=== PATIENT | female | born 1970 | race Caucasian/White ===

== ENCOUNTER 2020-07-01 07:20 | Emergency (ER) | payer SELFPAY ==
[~2020-07-01] VITALS: Ht 165.1 cm; Wt 61.2 kg
--- OUTSIDE RECORDS SUMMARY | 2020-07-01 07:55 | XMS REPORT | Continuity of Care Document ---
Author Author [facility] t Organization [facility] Address [address] [place] [address] Phone Unavailable Care Team Providers Care Clearance Representative Name Role Phone Unavailable Unavailable Payers Payer Name Policy Type Policy Number Effective Date Expiration Date S ource Problems This patient has no known problems. Allergies, Adverse Reactions, Alerts Allergy Name Allergy Type Status Severity Reaction(s) Onset Date Inacti ve Date Treating Clinician Comments Source Penicillins DA Active SV 2016-10-18 00:00:00 [facility] codeine DA Active U 2016-10-18 00:00:00 [facility] soy FA Active SV 2016-10-18 00:00:00 [facility] Medications This patient has no known medications. Procedures This patient has no known procedures. Results Test Description Test Time Test Comments Results Result Comments Source - CT ABD PELVIS W/CONT 2019-12-17 12:28:00 Nam e: LUCIO ESCOBEDO [facility] : 1970 Age/S: 49 / F [address] [facility] Unit #: [id number] Loc: [place] [address] Phys: Blaise Castellon MD Acct: [id number] Dis Date: Status: REG ER PHONE #: [phone] Exam Date: 12/17/2019 1129 FAX #: [phone] Reason: ap diffuse EXAMS: CPT CODE: [id number] CT ABD PELVIS W/CONT 50586 HISTORY: Diffuse abdominal pain. COMPARISON: None available. Location: [facility]. CT of abdomen and pelvis with IV contrast: 100 mL of Isovue-370. Automated exposure control. CT of abdomen: The lung bases are clear. The liver is enhancing homogeneously no parenchymal mass. Patient is post cholecystectomy. Portal vein and hepatic artery are patent. Liver measured 15.3 cm in length. Trace perihepatic fluid. The spleen is not enlarged. The stomach is incompletely and is limited in evaluation. Thickened distal esophagus. Pancreas is enhancing homogeneously. Right adrenal is normal. Left adrenal nodule measured 1 cm with average Hounsfield unit measurement ranging up to 60. This is difficult to characterize. Kidneys are free from hydroureteronephrosis. Homogeneous enhancement. Bilateral excretion is noted. No pathologic adenopathy. Well-opacified abdominal and pelvic vasculature. Atherosclerotic change. Mild diffuse di stention of the large bowel with thickening of the transverse colon and the left colon consistent with acute colitis. The small bowel loops in the upper abdomen are within normal limits. CT PELVIS: Severe thickening of the entire ileum suggesting severe acute enteritis. Appendix is not visible. Thickened left colon consistent with colitis. Small pelvic free fluid. No free air or abscess. Incompletely distended urinary bladder is unremarkable. Patient is post hysterectomy. No pelvic pathologic adenopathy. Subcutaneous tissues and the musculature are normal in appearance. No lytic or blastic lesions are noted within the bony skeleton. DJD. Pars PAGE 1 Signed Report (CONTINUED) Name: LUCIO ESCOBEDO [facility] : 1970 Age/S: 49 / F [address] [facility] Unit #: [id number] Loc: [place] [address] Phys: Blaise Castellon MD Acct: [id number] Dis Date: Status: REG ER PHONE #: [phone] Exam Date: 12/17/2019 1128 FAX #: [phone] Reason: ap diffuse EXAMS: CPT CODE: [id number] CT ABD PELVIS W/CONT 10937 <Continued> interarticularis fracture at L5-S1 level bilaterally. Grade 2 anterolisthesis of L5 over S1. IMPRESSION: Severe diffuse circumferential wall thickening of the entire ileum consistent with severe acute enteritis. Left and transverse colitis as well. Small free fluid. No free air or abscess. Appendix is not visible. at 1228 Reported and signed by: Keith Gonzalez M.D. CC: Blaise Castellon MD Technologist:Fabi Montiel RT(R)(CT) CTDI: 9.12 DLP: 910.79 Trnscb Date/Time: 12/17/2019 (1228) [email or web address] Orig Print D/T: S: 12/17/2019 (5744) PAGE 2 Signed Report COMPREHENSIVE METABOLIC PANEL 2019-12-17 10:52:00 Test Item SODIUM (test code = NA) 138 mmol/L 136-145 N POTASSIUM (test code = K) 3.7 mmol/L 3.5-5.1 N CHLORIDE (test code = CL) 102 mmol/L 101-109 N CARBON DIOXIDE (test code = CO2) 27.3 mmol/L 21-32 N ANION GAP (test code = GAP) 12 mmol/L 10-20 N GLUCOSE (test code = GLU) 113 mg/dL 74-106 H BLOOD UREA NITROGEN (test code = BUN) 7 mg/dL 3-21 N CREATININE (test code = CREAT) 0.57 mg/dL 0.55-1.3 N BUN/CREATININE RATIO (test code = BUN/CREA) 12.3 10-20 N TOTAL PROTEIN (test code = PROT) 6.9 g/dL 6.5-8.4 N ALBUMIN (test code = ALB) 3.7 g/dL 3.4-4.8 N GLOBULIN (test code = GLOB) 3.2 G/DL 1-10 N ALBUMIN/GLOBULIN RATIO (test code = A/G) 1.16 RATIO 0.75-1.50 N CALCIUM (test code = CA) 8.9 mg/dL 8.4-10.2 N BILIRUBIN TOTAL (test code = BILT) 0.50 mg/dL 0.0-1.0 N SGOT/AST (test code = AST) 17 U/L 6-32 N SGPT/ALT (test code = ALT) 19 U/L 12-78 N N ote: Change in REFERENCE RANGE due to new reagent method. ALKALINE PHOSPHATASE TOTAL (test code = ALKP) 49 U/L 38-126 N [id number] 10:52:00* Test Item Value Reference Range Interpretation Comments LIPASE (test code = LIP) 83 U/L 128-270 L [id number] 10:52:00* Test Item Value Reference Range Interpretation Comments MAGNESIUM (test code = MAG) 1.8 mg/dL 1.6-2.3 N COMPREHENSIVE METABOLIC [id number] 10:45:00* Test Item Value Reference Range Interpretation Comments SODIUM (test code = NA) 138 mmol/L 136-145 N POTASSIUM (test code = K) 3.7 mmol/L 3.5-5.1 N CHLORIDE (test code = CL) 102 mmol/L 101-109 N CARBON DIOXIDE (test code = CO2) 27.3 mmol/L 21-32 N ANION GAP (test code = GAP) 12 mmol/L 10-20 N GLUCOSE (test code = GLU) 113 mg/dL 74-106 H BLOOD UREA NITROGEN (test code = BUN) 7 mg/dL 3-21 N CREATININE (test code = CREAT) 0.57 mg/dL 0.55-1.3 N BUN/CREATININE RATIO (test code = BUN/CREA) 12.3 10-20 N TOTAL PROTEIN (test code = PROT) gram/dL 6.4-8.2 ALBUMIN (test code = ALB) g/dL 3.4-5.0 GLOBULIN (test code = GLOB) g/dL 2.7-4.2 ALBUMIN/GLOBULIN RATIO (test code = A/G) 0.75-1.50 CALCIUM (test code = CA) 8.9 mg/dL 8.4-10.2 N BILIRUBIN TOTAL (test code = BILT) mg/dL 0.2-1.2 SGOT/AST (test code = AST) IUnit/L 15-37 SGPT/ALT (test code = ALT) U/L 10-69 ALKALINE PHOSPHATASE TOTAL (test code = ALKP) IUnit/L 45-117 [id number] 10:45:00* Test Item Value Reference Range Interpretation Comments LIPASE (test code = LIP) Unit/L 144-286 [id number] 10:45:00* Test Item Value Reference Range Interpretation Comments MAGNESIUM (test code = MAG) mg/dL 1.8-2.4 CBC W/AUTO [id number] 10:40:00* Test Item Value Reference Range Interpretation Comments WHITE BLOOD CELL (test code = WBC) 9.4 K/mm3 4.5-12.5 N RED BLOOD CELL (test code = RBC) 5.07 mill/mm3 3.7-5.2 N HEMOGLOBIN (test code = HGB) 15.5 gram/dL 11.5-15.5 N HEMATOCRIT (test code = HCT) 45.5 % 36.0-46.0 N MEAN CELL VOLUME (test code = MCV) 89.7 fL 80-98 N MEAN CELL HGB (test code = MCH) 30.6 picogram 27.0-33.0 N MEAN CELL HGB CONCETRATION (test code = MCHC) 34.1 gram/dL 33.0-36. 0 N RED CELL DISTRIBUTION WIDTH (test code = RDW) 12.6 % 11.6-16. 2 N RED CELL DISTRIBUTION WIDTH SD (test code = RDW-SD) 42.5 fL 37 .0-51.0 N PLATELET COUNT (test code = PLT) 246 K/mm3 150-450 N MEAN PLATELET VOLUME (test code = MPV) 10.1 fL 6.7-11.0 N NEUTROPHIL % (test code = NT%) 70.4 % 39.0-69.0 H LYMPHOCYTE % (test code = LY%) 22.1 % 25.0-55.0 L MONOCYTE % (test code = MO%) 5.9 % 0.0-10.0 N EOSINOPHIL % (test code = EO%) 1.0 % 0.0-5.0 N BASOPHIL % (test code = BA%) 0.5 % 0.0-1.0 N NEUTROPHIL # (test code = NT#) 6.63 K/mm3 1.8-7.7 N LYMPHOCYTE # (test code = LY#) 2.08 K/mm3 1.0-5.0 N MONOCYTE # (test code = MO#) 0.56 K/mm3 0-0.8 N EOSINOPHIL # (test code = EO#) 0.09 K/mm3 0.0-0.5 N BASOPHIL # (test code = BA#) 0.05 K/mm3 0.0-0.2 N MANUAL DIFF REQUIRED (test code = MDIFF) NO URINALYSIS [id number] 10:34:00* Test Item Value Reference Range Interpretation Comments UA COLOR (test code = COLU) YELLOW YELLOW UA APPEARANCE (test code = APPU) CLEAR CLEAR UA GLUCOSE DIPSTICK (test code = DGLUU) norm mg/dL NEGATIVE UA BILIRUBIN DIPSTICK (test code = BILU) NEGATIVE mg/dL NEGATIVE UA KETONE DIPSTICK (test code = KETU) neg mg/dL NEGATIVE UA SPECIFIC GRAVITY (test code = SGU) 1.005 1.001-1.035 UA BLOOD DIPSTICK (test code = JANETT) 25 (1+) Johan/uL NEGATIVE A UA PH DIPSTICK (test code = VON) 5.0 5.0-8.0 UA PROTEIN DIPSTICK (test code = PROU) neg mg/dL Neg-15 UA UROBILINIOGEN DIPSTICK (test code = URO) norm mg/dL 0.0-0.2 UA NITRITE DIPSTICK (test code = HERBERTH) NEGATIVE NEGATIVE UA LEUKOCYTE ESTERASE DIPSTICK (test code = LEUU) neg uL NEGA TIVE UA WBC (test code = WBCU) 0-1 per HPF 0-5 UA RBC (test code = RBCU) 0-3 per HPF 0-5 UA EPITHELIAL CELLS (test code = EPIU) Rare (0-1/hpf) per HPF Few UA BACTERIA (test code = BACU) TRACE per HPF NONE Urine Source? Clean CatchUR HCG [id number] 10:34:00* Test Item Value Reference Range Interpretation Comments UR HCG QUAL (test code = HCGQLU) NEGATIVE This HCGQL test is NOT applicable for MALE patients.Check with nurse about probable order error.If Tumor Marker Test needed, nurse should order test "HCGTU"(Test #[id number]) Urine Source? Clean Catch- CTA [id number] 12:15:00 Name: LUCIO ESCOBEDO [facility] : 1970 Age/S: 49 / F [address] [facility] Unit #: [id number] Loc: [place] [address] Phys: Justus Sullivan MD Acct: [id number] Dis Date: Status: REG ER PHONE #: [phone] Exam Date: 11/11/2019 1135 FAX #: [phone] Reason: chest pain r/o dissection EXAMS: CPT CODE: [id number] CTA CHEST 60476 REASON FOR EXAM: chest pain r/o dissection EXAM ORDER DATE: 11/11/2019 10:57 AM Ordering MLizzie: Justus Sullivan MD PROCEDURE: - CTA CHEST Comparison:None Axial CT images of the chest were obtained with IV contrast. Reconstructed sagittal and coronal images of the chest were provided for interpretation. Dose reduction techniques were applied. FINDINGS: Visualized neck: Normal Airways, Lungs and Pleura: There are a few groundglass nodules in the right upper lobe which may represent a focal infection. Heart, great vessels, pulmonary vessels, mediastinum: Mild atherosclerotic disea se is present in the aortic arch and in the descending thoracic aorta at t he level of the aortic hiatus. However no dissection or aneurysm of the ao rta is seen. No appreciable coronary atherosclerosis or an anomalous anato my is appreciated. No pulmonary embolus or right heart strain. Cardiac vicky mbers are within normal limits. Lymph nodes: No axillary, in ternal mammary, hilar, or mediastinal adenopathy. Musculoske letal/chest wall: Mild degenerative changes are present in the thoracic sp ine. Visualized upper abdomen: Subcentimeter adrenal adenomas are present bilaterally. Prior cholecystectomy IMPRESS ION: No findings of aortic dissection or pulmonary embolus or significant coronary or aortic atherosclerosis. Mild groundglass opacities in the right upper lobe may represent an PAGE 1 Signed Report (CONTINUED) Name: LUCIO ESCOBEDO [facility] : 1970 Age/S: 49 / F [address] [facility] Unit #: [id number] Loc: [place] [address] Phys: Justus Sullivan MD Acct: [id number] Dis Date: Status: REG ER PHONE #: [phone] Exam Date: 1135 FAX #: [phone] Reason: chest pain r /o dissection EXAMS: CPT CODE: [id number] CTA CHEST 37118 <Continued> infectious process. Location: [facility] at 1215 Reported and signed by: Rajeev Finney MD CC: Justus Sullivan MD Technologist:Janey Ryan CTDI: DLP: Trnscb Date/Time: 11/11/2019 (8611) [id number] Orig Print D/T: S: 11/11/2019 (0642) PAGE 2 Signed Report COMPREHENSIVE METABOLIC [id number] 11:19:00* Test Item Value Reference Range Interpretation Comments SODIUM (test code = NA) 144 mmol/L 136-145 N POTASSIUM (test code = K) 3.8 mmol/L 3.5-5.1 N CHLORIDE (test code = CL) 107 mmol/L 101-109 N CARBON DIOXIDE (test code = CO2) 27.7 mmol/L 21-32 N ANION GAP (test code = GAP) 13 mmol/L 10-20 N GLUCOSE (test code = GLU) 112 mg/dL 74-106 H BLOOD UREA NITROGEN (test code = BUN) 7 mg/dL 3-21 N CREATININE (test code = CREAT) 0.54 mg/dL 0.55-1.3 L BUN/CREATININE RATIO (test code = BUN/CREA) 13.0 10-20 N TOTAL PROTEIN (test code = PROT) 6.8 g/dL 6.5-8.4 N ALBUMIN (test code = ALB) 3.6 g/dL 3.4-4.8 N GLOBULIN (test code = GLOB) 3.2 G/DL 1-10 N ALBUMIN/GLOBULIN RATIO (test code = A/G) 1.13 RATIO 0.75-1.50 N CALCIUM (test code = CA) 8.9 mg/dL 8.4-10.2 N BILIRUBIN TOTAL (test code = BILT) 0.40 mg/dL 0.0-1.0 N SGOT/AST (test code = AST) 14 U/L 6-32 N SGPT/ALT (test code = ALT) 22 U/L 12-78 N N ote: Change in REFERENCE RANGE due to new reagent method. ALKALINE PHOSPHATASE TOTAL (test code = ALKP) 54 U/L 38-126 N [id number] 11:19:00* Test Item Value Reference Range Interpretation Comments TROPONIN-I (test code = TROPI) <0.015 ng/mL 0.00-0.056 N B-TYPE NATRIURETIC [id number] 11:18:00* Test Item Value Reference Range Interpretation Comments B-TYPE NATRIURETIC PEPTIDE (test code = BNP) 9.0 pg/mL 0-100 N COMPREHENSIVE METABOLIC [id number] 11:11:00* Test Item Value Reference Range Interpretation Comments SODIUM (test code = NA) 144 mmol/L 136-145 N POTASSIUM (test code = K) 3.8 mmol/L 3.5-5.1 N CHLORIDE (test code = CL) 107 mmol/L 101-109 N CARBON DIOXIDE (test code = CO2) 27.7 mmol/L 21-32 N ANION GAP (test code = GAP) 13 mmol/L 10-20 N GLUCOSE (test code = GLU) 112 mg/dL 74-106 H BLOOD UREA NITROGEN (test code = BUN) 7 mg/dL 3-21 N CREATININE (test code = CREAT) 0.54 mg/dL 0.55-1.3 L BUN/CREATININE RATIO (test code = BUN/CREA) 13.0 10-20 N TOTAL PROTEIN (test code = PROT) gram/dL 6.4-8.2 ALBUMIN (test code = ALB) g/dL 3.4-5.0 GLOBULIN (test code = GLOB) g/dL 2.7-4.2 ALBUMIN/GLOBULIN RATIO (test code = A/G) 0.75-1.50 CALCIUM (test code = CA) 8.9 mg/dL 8.4-10.2 N BILIRUBIN TOTAL (test code = BILT) mg/dL 0.2-1.2 SGOT/AST (test code = AST) IUnit/L 15-37 SGPT/ALT (test code = ALT) U/L 10-69 ALKALINE PHOSPHATASE TOTAL (test code = ALKP) IUnit/L 45-117 [id number] 11:11:00* Test Item Value Reference Range Interpretation Comments TROPONIN-I (test code = TROPI) ng/mL 0-0.045 CBC W/AUTO [id number] 11:03:00* Test Item Value Reference Range Interpretation Comments WHITE BLOOD CELL (test code = WBC) 6.0 K/mm3 4.5-12.5 N RED BLOOD CELL (test code = RBC) 4.65 mill/mm3 3.7-5.2 N HEMOGLOBIN (test code = HGB) 14.1 gram/dL 11.5-15.5 N HEMATOCRIT (test code = HCT) 42.5 % 36.0-46.0 N MEAN CELL VOLUME (test code = MCV) 91.4 fL 80-98 N MEAN CELL HGB (test code = MCH) 30.3 picogram 27.0-33.0 N MEAN CELL HGB CONCETRATION (test code = MCHC) 33.2 gram/dL 33.0-36. 0 N RED CELL DISTRIBUTION WIDTH (test code = RDW) 12.9 % 11.6-16. 2 N RED CELL DISTRIBUTION WIDTH SD (test code = RDW-SD) 43.9 fL 37 .0-51.0 N PLATELET COUNT (test code = PLT) 222 K/mm3 150-450 N MEAN PLATELET VOLUME (test code = MPV) 10.4 fL 6.7-11.0 N NEUTROPHIL % (test code = NT%) 53.8 % 39.0-69.0 N LYMPHOCYTE % (test code = LY%) 35.6 % 25.0-55.0 N MONOCYTE % (test code = MO%) 7.7 % 0.0-10.0 N EOSINOPHIL % (test code = EO%) 1.8 % 0.0-5.0 N BASOPHIL % (test code = BA%) 0.8 % 0.0-1.0 N NEUTROPHIL # (test code = NT#) 3.21 K/mm3 1.8-7.7 N LYMPHOCYTE # (test code = LY#) 2.13 K/mm3 1.0-5.0 N MONOCYTE # (test code = MO#) 0.46 K/mm3 0-0.8 N EOSINOPHIL # (test code = EO#) 0.11 K/mm3 0.0-0.5 N BASOPHIL # (test code = BA#) 0.05 K/mm3 0.0-0.2 N MANUAL DIFF REQUIRED (test code = MDIFF) NO - CT HEAD/BRAIN W/O [id number] 10:01:00 Name: LUCIO ESCOBEDO [facility] : 1970 Age/S: 49 / F [address] [facility] Unit #: [id number] Loc: [place] [address] Phys: Jay Jay Kauffman MD Acct: [id number] Dis Date: Status: REG ER PHONE #: [phone] Exam Date: 07/16/2019919 FAX #: [phone] Reason: DIZZY/HEADACHE EXAMS: CPT CODE: [id number] CT HEAD/BRAIN W/O CONT 53594 HISTORY: DIZZY/HEADACHE TECHNIQUE: Noncontrast 2.[address] of the head. Examination acquired within 24 hours of arrival. Automated exposure control for dose reduction. COMPARISON: None FINDINGS: No lacerations or contusions of the scalp or facial soft tissues.. Calvarium and skull base are intact. No acute hemorrhage. No intracranial mass, mass effect, or midline shift. No effacement of the sulci or adams- white matter interface to suggest acute infarct. No henok ical atrophy. No signs of white matter small-vessel disease. No h ydrocephalus.. No extra-axial fluid collection. There is marked m ucosal thickening in the right maxillary sinus. Remaining paranasal sinuse s are clear. Mastoid air cells and middle ear cavities are clear. O rbital contents are unremarkable. IMPRESSION: Marked mucosal thickening of the right maxillary sinus. Correlate clinically for sinusitis. The brain parenchyma is within normal limits. at 1001 Reported and signed by: Rajeev Finney MD CC: Jay Jay Kauffman MD Technologist:GEENA GROVE, RT(R ),CT CTDI: DLP: Trnscb Date/Time: 07/16/2019 (1001) t.SDR.RR 31 Orig Print D/T: S: 07/16/2019 (1004) PAGE 1 Signed Report COMPREHENSIVE METABOLIC [id number] 09:35:00* Test Item Value Reference Range Interpretation Comments SODIUM (test code = NA) 140 mmol/L 136-145 N POTASSIUM (test code = K) 3.8 mmol/L 3.5-5.1 N CHLORIDE (test code = CL) 105 mmol/L 101-109 N CARBON DIOXIDE (test code = CO2) 28.3 mmol/L 21-32 N ANION GAP (test code = GAP) 11 mmol/L 10-20 N GLUCOSE (test code = GLU) 121 mg/dL 74-106 H BLOOD UREA NITROGEN (test code = BUN) 6 mg/dL 3-21 N CREATININE (test code = CREAT) 0.52 mg/dL 0.55-1.3 L BUN/CREATININE RATIO (test code = BUN/CREA) 11.5 10-20 N TOTAL PROTEIN (test code = PROT) 7.2 g/dL 6.5-8.4 N ALBUMIN (test code = ALB) 4.0 g/dL 3.4-4.8 N GLOBULIN (test code = GLOB) 3.2 G/DL 1-10 N ALBUMIN/GLOBULIN RATIO (test code = A/G) 1.25 RATIO 0.75-1.50 N CALCIUM (test code = CA) 8.8 mg/dL 8.4-10.2 N BILIRUBIN TOTAL (test code = BILT) 0.40 mg/dL 0.0-1.0 N SGOT/AST (test code = AST) 14 U/L 6-32 N SGPT/ALT (test code = ALT) 13 U/L 12-78 N N ote: Change in REFERENCE RANGE due to new reagent method. ALKALINE PHOSPHATASE TOTAL (test code = ALKP) 51 U/L 38-126 N [id number] 09:35:00* Test Item Value Reference Range Interpretation Comments TROPONIN-I (test code = TROPI) <0.015 ng/mL 0.00-0.056 N URINALYSIS [id number] 09:24:00* Test Item Value Reference Range Interpretation Comments UA COLOR (test code = COLU) YELLOW YELLOW UA APPEARANCE (test code = APPU) CLEAR CLEAR UA GLUCOSE DIPSTICK (test code = DGLUU) norm mg/dL NEGATIVE UA BILIRUBIN DIPSTICK (test code = BILU) NEGATIVE mg/dL NEGATIVE UA KETONE DIPSTICK (test code = KETU) neg mg/dL NEGATIVE UA SPECIFIC GRAVITY (test code = SGU) 1.005 1.001-1.035 UA BLOOD DIPSTICK (test code = JANETT) 25 (1+) Johan/uL NEGATIVE A UA PH DIPSTICK (test code = VON) 5.0 5.0-8.0 UA PROTEIN DIPSTICK (test code = PROU) neg mg/dL Neg-15 UA UROBILINIOGEN DIPSTICK (test code = URO) norm mg/dL 0.0-0.2 UA NITRITE DIPSTICK (test code = HERBRETH) NEGATIVE NEGATIVE UA LEUKOCYTE ESTERASE DIPSTICK (test code = LEUU) neg uL NEGA TIVE UA WBC (test code = WBCU) 0-5 per HPF 0-5 UA RBC (test code = RBCU) 0-3 per HPF 0-5 UA EPITHELIAL CELLS (test code = EPIU) Rare (0-1/hpf) per HPF Few UA BACTERIA (test code = BACU) NONE SEEN per HPF NONE UA MUCUS (test code = MUCU) FEW per LPF NONE-FEW Urine Source? Clean CatchCOMPREHENSIVE METABOLIC [id number] 09:20:00* Test Item Value Reference Range Interpretation Comments SODIUM (test code = NA) 140 mmol/L 136-145 N POTASSIUM (test code = K) 3.8 mmol/L 3.5-5.1 N CHLORIDE (test code = CL) 105 mmol/L 101-109 N CARBON DIOXIDE (test code = CO2) 28.3 mmol/L 21-32 N ANION GAP (test code = GAP) 11 mmol/L 10-20 N GLUCOSE (test code = GLU) 121 mg/dL 74-106 H BLOOD UREA NITROGEN (test code = BUN) 6 mg/dL 3-21 N CREATININE (test code = CREAT) 0.52 mg/dL 0.55-1.3 L BUN/CREATININE RATIO (test code = BUN/CREA) 11.5 10-20 N TOTAL PROTEIN (test code = PROT) 7.2 g/dL 6.5-8.4 N ALBUMIN (test code = ALB) 4.0 g/dL 3.4-4.8 N GLOBULIN (test code = GLOB) 3.2 G/DL 1-10 N ALBUMIN/GLOBULIN RATIO (test code = A/G) 1.25 RATIO 0.75-1.50 N CALCIUM (test code = CA) 8.8 mg/dL 8.4-10.2 N BILIRUBIN TOTAL (test code = BILT) 0.40 mg/dL 0.0-1.0 N SGOT/AST (test code = AST) 14 U/L 6-32 N SGPT/ALT (test code = ALT) U/L 10-69 ALKALINE PHOSPHATASE TOTAL (test code = ALKP) 51 U/L 38-126 N [id number] 09:20:00* Test Item Value Reference Range Interpretation Comments TROPONIN-I (test code = TROPI) <0.015 ng/mL 0.00-0.056 N URINALYSIS [id number] 09:15:00* Test Item Value Reference Range Interpretation Comments UA COLOR (test code = COLU) YELLOW YELLOW UA APPEARANCE (test code = APPU) CLEAR CLEAR UA GLUCOSE DIPSTICK (test code = DGLUU) norm mg/dL NEGATIVE UA BILIRUBIN DIPSTICK (test code = BILU) NEGATIVE mg/dL NEGATIVE UA KETONE DIPSTICK (test code = KETU) neg mg/dL NEGATIVE UA SPECIFIC GRAVITY (test code = SGU) 1.005 1.001-1.035 UA BLOOD DIPSTICK (test code = JANETT) 25 (1+) Johan/uL NEGATIVE A UA PH DIPSTICK (test code = VON) 5.0 5.0-8.0 UA PROTEIN DIPSTICK (test code = PROU) neg mg/dL Neg-15 UA UROBILINIOGEN DIPSTICK (test code = URO) norm mg/dL 0.0-0.2 UA NITRITE DIPSTICK (test code = HERBERTH) NEGATIVE NEGATIVE UA LEUKOCYTE ESTERASE DIPSTICK (test code = LEUU) neg uL NEGA TIVE UA WBC (test code = WBCU) per HPF 0-5 UA RBC (test code = RBCU) per HPF 0-5 UA EPITHELIAL CELLS (test code = EPIU) per HPF Few UA BACTERIA (test code = BACU) per HPF NONE Urine Source? Clean CatchCBC W/AUTO [id number] 09:06:00* Test Item Value Reference Range Interpretation Comments WHITE BLOOD CELL (test code = WBC) 6.4 K/mm3 4.5-12.5 N RED BLOOD CELL (test code = RBC) 5.07 mill/mm3 3.7-5.2 N HEMOGLOBIN (test code = HGB) 15.2 gram/dL 11.5-15.5 N HEMATOCRIT (test code = HCT) 46.4 % 36.0-46.0 H MEAN CELL VOLUME (test code = MCV) 91.5 fL 80-98 N MEAN CELL HGB (test code = MCH) 30.0 picogram 27.0-33.0 N MEAN CELL HGB CONCETRATION (test code = MCHC) 32.8 gram/dL 33.0-36. 0 L RED CELL DISTRIBUTION WIDTH (test code = RDW) 12.4 % 11.6-16. 2 N RED CELL DISTRIBUTION WIDTH SD (test code = RDW-SD) 42.3 fL 37 .0-51.0 N PLATELET COUNT (test code = PLT) 270 K/mm3 150-450 N MEAN PLATELET VOLUME (test code = MPV) 10.6 fL 6.7-11.0 N NEUTROPHIL % (test code = NT%) 60.5 % 39.0-69.0 N LYMPHOCYTE % (test code = LY%) 30.9 % 25.0-55.0 N MONOCYTE % (test code = MO%) 6.4 % 0.0-10.0 N EOSINOPHIL % (test code = EO%) 1.2 % 0.0-5.0 N BASOPHIL % (test code = BA%) 0.8 % 0.0-1.0 N NEUTROPHIL # (test code = NT#) 3.88 K/mm3 1.8-7.7 N LYMPHOCYTE # (test code = LY#) 1.98 K/mm3 1.0-5.0 N MONOCYTE # (test code = MO#) 0.41 K/mm3 0-0.8 N EOSINOPHIL # (test code = EO#) 0.08 K/mm3 0.0-0.5 N BASOPHIL # (test code = BA#) 0.05 K/mm3 0.0-0.2 N
--- NOTE | 2020-07-01 07:57 | Emergency Department Note ---
History of Present Illnes History of Present Illness Chief Complaint: lump History of Present Illness This is a 50 year old female has had over the middle portion of her left back a lump. This lump has been there for at least 4 months, has not grown in size but continues to a known heroin bother her. 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 Patient has seen primary care for this and has been treated for shingles, skin infections, no resolution of the lung. Denies fever chills or any other concerns. Historian: Patient Arrival Mode: Car Onset (how long ago): month(s) (4) Location: back Quality: ache Radiation: Reports back Severity: moderate Onset quality: gradual Duration (how long): month(s) Timing of current episode: constant Progression: worsening Context: Denies recent illness, Denies recent surgery, Denies recent immobilization, Denies trauma/injury Relieving factors: none Exacerbating factors: movement, other (touching) Associated symptoms: Reports denies other symptoms Treatments prior to arrival: none Past Medical/Family History Physician Review I have reviewed the patient's past medical and family history. Any updates have been documented here. Past Medical History Recent Fever: No Clinical Suspicion of Infectio: No New/Unexplained Change in Ment: No Past Surgical History: Cholecysctectomy, Appendectomy, Hysterectomy Social History Smoking Cessation: Never Smoker Alcohol Use: None Any Illegal Drug Use: No Physically hurt or threatened: No Other Last Tetanus: UNKNOWN Any Pre-Existing Lines (PICC,: No Review of Systems Review of Systems Constitutional: Reports no symptoms EENTM: Reports no symptoms Cardiovascular: Reports no symptoms Respiratory: Reports no symptoms Gastrointestinal: Reports no symptoms Genitourinary: Reports no symptoms Musculoskeletal: Reports no symptoms Integumentary: Reports no symptoms Neurological: Reports no symptoms Psychological: Reports no symptoms Endocrine: Reports no symptoms Hematological/Lymphatic: Reports no symptoms Physical Exam Related Data Allergies: Coded Allergies: Penicillins (Verified Allergy, Severe, 09/03/16) codeine (Verified Allergy, Intermediate, HALLUCINATIONS, 12/07/10) Triage Vital Signs Vital Signs Date Time Temp Pulse Resp B/P (MAP) Pulse Ox O2 Delivery O2 Flow Rate FiO2 07/01/20 07:33 97.9 71 18 140/93 99 Room Air Physical Exam CONSTITUTIONAL Constitutional: Present well-developed, Present well-nourished HENT HENT: Present normocephalic, Present atraumatic, Present oropharynx clear/moist, Present nose normal HENT L/R: Present left ext ear normal, Present right ext ear normal EYES Eyes: Reports PERRL, Reports conjunctivae normal NECK Neck: Present ROM normal PULMONARY Pulmonary: Present effort normal, Present breath sounds normal CARDIOVASCULAR Cardiovascular: Present regular rhythm, Present heart sounds normal, Present capillary refill normal, Present normal rate GASTROINTESTINAL Abdominal: Present soft, Present nontender, Present bowel sounds normal GENITOURINARY Genitourinary: Present exam deferred SKIN Skin: Present warm, Present dry, Present other (patient on the left mid back with a 5 x 3 cm raised area, no fluctuance, no erythema, non-mobile.) MUSCULOSKELETAL Musculoskeletal: Present ROM normal NEUROLOGICAL Neurological: Present alert, Present oriented x 3, Present no gross motor or sensory deficits PSYCHOLOGICAL Psychological: Present mood/affect normal, Present judgement normal Assessment & Plan Medical Decision Making MDM Patient is a 50-year-old female with a soft tissue mass that has been there for 4 months. No concerns for infection currently. Will refer to primary care doctor and get medications for symptomatically management. Patient also requests something for her chronically sore throat and, does not want to take lidocaine anymore. Patient was given a prescription for Lidoderm patches and also Magic mouthwash. Patient urged to follow up with primary care in 1-2 days or early next week for further management of this mass. Patient will need an MRI, ultrasound or biopsy. Nonemergent given that it has been for months. Assessment & Plan Final Impression: (1) Soft tissue mass Depart Disposition: HOME, SELF-CARE Last Vital Signs Date Time Temp Pulse Resp B/P (MAP) Pulse Ox O2 Delivery O2 Flow Rate FiO2 07/01/20 07:39 97.8 74 18 140/93 100 Room Air Home Meds No Active Prescriptions or Reported Meds MINOR FRENCH MD Jul 01, 2020 07:57
[2020-07-01 07:58] VITALS: BP 140/70
== END 2020-07-01 08:01 | disposition home or self-care (01) ==
LOC: ER 07:40
DX: R22.2 Localized swelling, mass and lump, trunk (principal)
CPT/HCPCS: 99283

== ENCOUNTER 2022-08-12 00:29 | Emergency (ER) | payer OTHER ==
[~2022-08-12] VITALS: Ht 165.1 cm; Wt 61.2 kg
[2022-08-12] MEDS ORDERED: KETOROLAC TROMETHAMINE 30 MG/ML VIAL IM STA (01:01)
[2022-08-12] MEDS ORDERED: NAPROXEN250 MG PO (02:06)
[2022-08-12 02:31] VITALS: BP 126/72
== END 2022-08-12 02:39 | disposition home or self-care (01) ==
LOC: ER 00:33
DX: M54.50 Low back pain, unspecified (principal); W01.0XXA Fall on same level from slipping, tripping and stumbling without subsequent striking against object, initial encounter; Y93.01 Activity, walking, marching and hiking; Y99.0 Civilian activity done for income or pay; F17.210 Nicotine dependence, cigarettes, uncomplicated
CPT/HCPCS: 74176; 99283; J1885